=== PATIENT | male | born 1985 | race Caucasian/White ===

== ENCOUNTER 2017-03-01 20:56 | Emergency (ER) | payer SELFPAY ==
[2017-03-01 21:04] VITALS: BP 141/79; BMI 25.8
--- NOTE | 2017-03-01 21:34 | DR.GENAD ---
HPI - PCP Primary Care Physician: PINEDA - HPI Comment HPI Comment: Pain and swelling to left hand. The onset of symptoms was 3 days ago. He denies associated trauma. The pain started first, followed by swelling and redness. He states that the ROM in the joint (wrist) is affected due to pain. It is is exacerbated by repetitive use such as playing piano. He has had no fever. He denies insect bite. - Complaint/Symptoms Chief Complaint:: C/O PAIN, SWELLING, REDNESS TO LEFT HAND. PATIENT REPORTS ONET OF SYMPTOMS THREE DAYS AGO WITH SEVERE PAIN TO LEFT HAND. SHORTLY THEREAFTER, REDNESS, EDEMA, AND WARMTH WERE NOTED. PATIENT REPORTS A HARDENED AREA TO LEFT HAND, BUT DENIES DRAINAGE. PATIENT DENIES TRAUMA OR INSECT BITE. LEFT HAND IS NOTED WITH ERYTHEMA, WARMTH, AND EDEMA THAT EXTENDS FROM LEFT WRIST TO FINGERS. - Nurses notes reviewed Nurses Notes Review: Yes - Source History Provided: Patient - Mode of Arrival Mode of Arrival: Ambulatory - Timing Onset of Chief Complaint: 02/26/17 Came on: Gradually - Duration Duration: Days (3) - Severity Severity: Moderate - Modifying Factors Worsens:: non-specific movement PMH - PMH Past Medical History: No Past Surgical History: Yes Surgical History: Cholecystectomy - Family History History of Family Medical Conditions: No - Social History Type of Tobacco Use: Cigarettes Alcohol Use: None Do you use any recreational Drugs:: No Lives With: Family Lives Where: Home - infectious screening In the last 2 months have you had wt loss of >10#?: NO Have you had fever, night sweats or hemotysis?: No Have you traveled outside the country in the last 6 months?: No Isolation: Standard ROS - Review of Systems Constitutional: No Symptoms Reported Eyes: No Symptoms Reported ENTM: No Symptoms Reported Respiratoy: No Symptoms Reported Cardiovascular: No Symptoms Reported Gastrointestinal/Abdominal: No Symptoms Reported Genitourinary: No Symptoms Reported Neurological: No Symptoms Reported Musculoskeletal: Joint Pain, Wrist, Hand Integumentary: No Symptoms Reported Hematologic/Lymphatic: No Symptoms Reported Endocrine: No Symptoms Reported Psychiatric: No Symptoms Reported All Other Systems: Reviewed and Negative PE - Vital Signs Vitals: Temperature 97.7 F Pulse Rate 98 Respiratory Rate 20 Blood Pressure 141/79 O2 Sat by Pulse Oximetry 96 - General Limitations: No Limitations General Appearance: Alert, In No Apparent Distress - Eyes Eye exam: Normal Appearance - ENT ENT Exam: Normal Exam TM/Canal Exam: Bilateral Normal Nose Exam: Normal Nose Exam Mouth Exam: Normal Inspection Throat Exam: Normal Inspection - Neck Neck Exam: Normal Inspection, Full ROM - Chest Chest Inspection: Normal Inspection - Respiratory Respiratory Exam: Normal Lung Sounds Bilat - Cardiovascular Cardiovascular Exam: Regular Rate, Normal Rhythm, Normal Heart Sounds - Abdominal Exam Abdominal Exam: Normal Inspection, Normal Bowel Sounds, Soft - Extremities Extremities Exam: Edema. negative: Normal Inspection, Full ROM, Tenderness, Normal Capillary Refill, Joint Swelling - Back Back Exam: Normal Inspection - Neurologic Neurological Exam: Alert, Oriented X3, CN II-XII Intact - Psychiatric Psychiatric Exam: Normal Affect, Normal Mood - Skin Skin Exam: Warm, Dry, Intact, Normal Color ROR - XRAY XRAY Interpreted by: Radiologist (soft tissue swelling, no bone lesions noted.) - Diagnosis Discharge Problem: Wrist pain, left, Swelling of left hand - Discharge Plan Disposition: 01 HOME, SELF-CARE Condition: Stable - Follow ups/Referrals Follow ups/Referrals: [facility],None [Primary Care Provider] - 3 days - Instructions
[2017-03-01] MEDS ORDERED: TORADOL 60 MG VIAL IM ONE (21:47)
[2017-03-01] MEDS ORDERED: TORADOL 60 MG VIAL ONE (21:53)
--- NOTE | 2017-03-01 22:50 | RAD ---
HAND RADIOGRAPHS CLINICAL HISTORY: 32-year-old male with pain and swelling of the left hand. No history of trauma. COMPARISON: None. FINDINGS: 3 views of the left hand were obtained. These demonstrate no acute fracture or malalignment . The joint spaces are maintained. There is no erosion, aggressive bone lesion or abnormal periostea l reaction. There is no soft tissue calcification or gas. The mineralization is maintained. Mild ed sagar of the dorsum of the hand. IMPRESSION: Mild edema to the dorsum of the hand without underlying fracture or malalignment and no bony involvem ent. Reported By:
== END 2017-03-01 23:26 | disposition home or self-care (01) ==
LOC: EDBD 21:13 → ER 21:13
DX: M25.532 Pain in left wrist (principal)
CPT/HCPCS: 73130; 96372; 99282; J1885